=== PATIENT | male | born 1965 | race Caucasian/White ===

== ENCOUNTER 2020-10-06 11:35 | Emergency (ER) | payer OTHER ==
[2020-10-06 11:48] VITALS: BMI 25.2
[2020-10-06] MEDS ORDERED: BAMLANIVIMAB 700 MG, ETESEVIMAB 1,400 MG in SODIUM CHLORIDE 250 ML IVPB ONE (12:29)
[2020-10-06 13:10] LABS: BASO % 0.2 % (0-2.0); EOS % 0.1 % (0-4.5); HEMATOCRIT 49.5 % (35.4-49); HEMOGLOBIN 17.1 GM/dL (11.7-16.9); LYMPH % 25.3 % (8-40); MCH 31.5 pg (25.7-33.7); MCHC 34.5 g/dl (32.0-35.9); MEAN CELL VOLUME 91.5 fl (80-96); MONO % 12.3 % (3.8-10.2); NEUT % 62.1 % (42.8-82.8); PLATELET COUNT 152 K/MM3 (134-434); RBC 5.41 M/mm3 (4.00-5.60); RDW 12.5 % (11.9-15.9); WHITE BLOOD COUNT 3.9 K/mm3 (4.0-10.0)
[2020-10-06 13:47] LABS: CALCIUM 9.5 mg/dL (8.5-10.1)
[2020-10-06 13:48] LABS: ALBUMIN 4.1 g/dl (3.4-5.0); BLOOD UREA NITROGEN 10.6 mg/dL (7-18)
[2020-10-06 13:51] LABS: CREATININE 0.8 mg/dL (0.55-1.3)
[2020-10-06 13:52] LABS: BILIRUBIN,TOTAL 0.6 mg/dL (0.2-1); TOT PROT 8.1 g/dl (6.4-8.2)
[2020-10-06 15:36] VITALS: BP 140/89; PULSE 86; TEMP 98.7
== END 2020-10-06 16:05 | disposition home or self-care (01) ==
LOC: JCOVINFU 11:35
DX: U07.1 COVID-19 (principal)
CPT/HCPCS: 36415; 80053; 85025; 99284-25; M0239; Q0239; Q0245